=== PATIENT | male | born 1985 | race Caucasian/White ===

== ENCOUNTER 2017-12-12 14:22 | Emergency (ER) | payer OTHER ==
[2017-12-12 16:22] LABS: ABS Basophils 0.1 10^3/ul (0-0.2); ABS Eosinophils 0.1 10^3/ul (0-0.6); ABS Lymphocytes 1.8 10^3/ul (1.0-4.8); ABS Monocytes 1.1 10^3/ul (0-0.8); ABS Neutrophils 10.2 10^3/ul (1.5-7.7); ABS Nucleated RBC 0 10^3/ul; Eosinophil % 0.8 % (0-6); Hematocrit 43 % (42-52); Lymphocyte % 13.9 % (25-47); Mean Corpuscular HGB Conc 34 g/dl (31-36); Mean Corpuscular Hemoglobin 30 pg (27-31); Mean Corpuscular Volume 88 fL (80-94); Mean Platelet Volume 9.2 um3 (7.4-10.4); Nucleated Red Blood Cells % 0; Platelet Count 207 10^3/ul (150-450); Red Blood Count 4.95 10^6/ul (4.0-5.4); Red Cell Distribution Width 13 % (10.5-15); White Blood Count 13.3 10^3/ul (3.5-10.8)
[2017-12-12 16:47] LABS: EGFR Non-African American 71.8 (>60)
--- NOTE | 2017-12-12 17:19 | ED ---
Skin Complaint - HPI Summary HPI Summary: 32 yo WM c/o scalp infection since 10 days ago after hitting his back of head while asleep and woke up with a small cut in back of head which has since drained some pus but still red and painful to touch. Has a thesis defense next week and wants his head pain controlled better. Denies dizzines DUNAWAY, n/v/AMS - History of Current Complaint Chief Complaint: EDHeadInjury Time Seen by Provider: 12/12/17 16:57 Stated Complaint: POSS. INFECTION Hx Obtained From: Patient Onset/Duration: Started Days Ago Skin Exposure Onset/Duration: Days Ago Timing: Lasting Days Onset Severity: Moderate Current Severity: Moderate Pain Intensity: 6 - Allergy/Home Medications Allergies/Adverse Reactions: Allergies Allergy/AdvReac Type Severity Reaction Status Date / Time No Known Allergies Allergy Verified 12/12/17 15:02 Home Medications: Home Medications Albuterol HFA INHALER* [Ventolin HFA Inhaler*] 2 puff INH Q4H PRN 12/12/17 [ History Confirmed 12/12/17] Atomoxetine(NF) [Strattera(NF)] 25 mg PO DAILY 12/12/17 [History Confirmed 12/12] Clindamycin Phos/Benzoyl Perox [Acanya Gel Pump] 1 gel TOPICAL DAILY 12/12/17 [ History Confirmed 12/12/17] Diazepam TAB(*) [Valium TAB(*)] 5 mg PO DAILY PRN 12/12/17 [History Confirmed ] Fluticasone HFA 220 mcg(NF) [Flovent Hfa 220 Mcg(NF)] 1 puff INH BID 12/12/17 [ History Confirmed 12/12/17] Gabapentin CAP(*) [Neurontin 300 CAP(*)] 300 mg PO BID 12/12/17 [History Confirmed 12/12/17] Melatonin (NF) 3 - 5 tab PO BEDTIME 12/12/17 [History Confirmed 12/12/17] Tazarotene [Tazorac] 0.1 % TOPICAL DAILY 12/12/17 [History Confirmed 12/12/17] diPHENhydraMINE PO* [Benadryl PO 25 MG TAB*] 25 mg PO BEDTIME 12/12/17 [History Confirmed 12/12/17] PMH/Surg Hx/FS Hx/Imm Hx Previously Healthy: Yes Psychiatric History: Reports: Hx Depression Infectious Disease History: No Infectious Disease History: Denies: Traveled Outside the [place] in Last 30 Days - Social History Alcohol Use: Occasionally Substance Use Type: Reports: None Smoking Status (MU): Never Smoked Tobacco Review of Systems Constitutional: Negative Eyes: Negative ENT: Negative Cardiovascular: Negative Respiratory: Negative Gastrointestinal: Negative Genitourinary: Negative Musculoskeletal: Negative Positive: Other - scalp infection Neurological: Negative Psychological: Normal All Other Systems Reviewed And Are Negative: Yes Physical Exam Triage Information Reviewed: Yes Vital Signs On Initial Exam: Initial Vitals Temp Pulse Resp BP Pulse Ox 37.7 C 113 16 138/89 100 12/12/17 15:03 12/12/17 15:03 12/12/17 15:03 12/12/17 15:03 12/12/17 15:03 Vital Signs Reviewed: Yes Appearance: Positive: Pain Distress Skin: Positive: Warm, Tender - back of head scalp cellulitis TTP, size 4x5cm, wound no obvious discharge or open wounds Head/Face: Positive: Normal Head/Face Inspection Eyes: Positive: Normal ENT: Positive: Normal ENT inspection Neck: Positive: Supple Respiratory/Lung Sounds: Positive: Clear to Auscultation Cardiovascular: Positive: RRR, S1, S2 Abdomen Description: Positive: Nontender Musculoskeletal: Positive: Normal Neurological: Positive: Normal Psychiatric: Positive: Normal - [place] Coma Scale Best Eye Response: 4 - Spontaneous Best Motor Response: 6 - Obeys Commands Best Verbal Response: 5 - Oriented Coma Scale Total: 15 Diagnostics - Vital Signs Vital Signs Temp Pulse Resp BP Pulse Ox 12/12/17 15:03 37.7 C 113 16 138/89 100 - Laboratory Lab Results: Lab Results 12/12/17 12/12/17 12/12/17 Range/Units 16:07 16:07 16:07 WBC 13.3 H (3.5-10.8) 10^3/ul RBC 4.95 (4.0-5.4) 10^6/ul Hgb 15.0 (14.0-18.0) g/dl Hct 43 (42-52) % MCV 88 (80-94) fL MCH 30 (27-31) pg MCHC 34 (31-36) g/dl RDW 13 (10.5-15) % Plt Count 207 (150-450) 10^3/ul MPV 9.2 (7.4-10.4) um3 Neut % (Auto) 76.6 (38-83) % Lymph % (Auto) 13.9 L (25-47) % [place] % (Auto) 8.1 H (0-7) % Eos % (Auto) 0.8 (0-6) % Baso % (Auto) 0.6 (0-2) % Absolute Neuts (auto) 10.2 H (1.5-7.7) 10^3/ul Absolute Lymphs (auto) 1.8 (1.0-4.8) 10^3/ul Absolute Monos (auto) 1.1 H (0-0.8) 10^3/ul Absolute Eos (auto) 0.1 (0-0.6) 10^3/ul Absolute Basos (auto) 0.1 (0-0.2) 10^3/ul Absolute Nucleated RBC 0 10^3/ul Nucleated RBC % 0 Sodium 143 (139-145) mmol/L Potassium 3.9 (3.5-5.0) mmol/L Chloride 106 (101-111) mmol/L Carbon Dioxide 28 (22-32) mmol/L Anion Gap 9 (2-11) mmol/L BUN 12 (6-24) mg/dL Creatinine 1.17 (0.67-1.17) mg/dL Est GFR ( Amer) 92.3 (>60) Est GFR (Non-Af Amer) 71.8 (>60) BUN/Creatinine Ratio 10.3 (8-20) Glucose 93 (70-100) mg/dL Lactic Acid 1.5 (0.5-2.0) mmol/L Calcium 9.7 (8.6-10.3) mg/dL Total Bilirubin 0.50 (0.2-1.0) mg/dL AST 66 H (13-39) U/L ALT 100 H (7-52) U/L Alkaline Phosphatase 83 (34-104) U/L C-React Prot High Sens 95.88 mg/L Total Protein 7.7 (6.4-8.9) g/dL Albumin 4.7 (3.2-5.2) g/dL Globulin 3.0 (2-4) g/dL Albumin/Globulin Ratio 1.6 (1-3) Result Diagrams: 12/12/17 16:07 12/12/17 16:07 Lab Statement: Any lab studies that have been ordered have been reviewed, and results considered in the medical decision making process. Course/Dx - Course Course Of Treatment: Il NS and 2g IV Cefempime administered. Pt remained stable and was d/c'd with outpt PO Keflex and percocet - Differential Diagnoses - Skin Complaint Differential Diagnoses: Abscess, Cellulitis - Diagnoses Provider Diagnoses: Scalp abrasion, infected, Cellulitis of head or scalp Discharge - Sign-Out/Discharge Documenting (check all that apply): Discharge - Discharge Plan Condition: Stable Disposition: HOME Prescriptions: Cephalexin CAP* [Keflex CAP*] 500 mg PO QID 7 Days #28 cap oxyCODONE/Acetamin 5/325 MG* [Percocet 5/325 TAB*] 1 tab PO Q6H PRN 3 Days #12 tab MDD 4 PRN Reason: Pain Patient Education Materials: Wound Infection (ED) Referrals: [facility] - Beni SOUZA [Primary Care Provider] - Additional Instructions: return to ED if symptoms worsen - Billing Disposition and Condition Condition: STABLE Disposition: HOME
[2017-12-12] MEDS ORDERED: Cefepime(*) 2 GM in NS 0.9% 50 ML* 50 ML IVPB ONE (17:20)
[2017-12-12] MEDS ORDERED: NS 0.9% 1000 ML* 1,000 ML IV ONE (17:21)
[2017-12-12] MEDS ORDERED: Cefepime 2 GM IV - ED ONCE IV ONE (18:15)
[2017-12-12 19:34] VITALS: BP 124/80
== END 2017-12-12 19:33 | disposition home or self-care (01) ==
LOC: EDSEX → MERGE 14:22 → ED 14:22
DX: L03.811 Cellulitis of head [any part, except face] (principal); S00.01XA Abrasion of scalp, initial encounter; W22.8XXA Striking against or struck by other objects, initial encounter; Y93.84 Activity, sleeping; Y92.9 Unspecified place or not applicable
CPT/HCPCS: 36415; 80053; 83605; 85025; 86141; 87040; 96360; 96374; 99282; J0692

== ENCOUNTER → 2018-03-28 21:44 | Emergency (ER) | payer OTHER ==
[~2018-03-28 21:44] MED LIST: Ciprofloxacin 0.3% OPTH.SOL* 2.5 ML BTL RIGHT EYE ONE; Fluorescein Sod TOPICAL 0.6* 0.6 MG TEST OPHTHALMIC ONE; Tetracaine 0.5% OPTH.SOL 4 ML* 1 DROP BTL BOTH EYES ONE
[2018-03-28 22:02] VITALS: BP 119/76
--- NOTE | 2018-03-28 22:10 | UC ---
Eye Complaint HPI - HPI Summary HPI Summary: 32 yo male presents with right eye injury. He tells me that earlier this evening he was doing yard work and started his weed radha when a piece of debris flew into his right eye. Thinks he may have scratched his eye. He does wear contacts and sometimes glasses, but was not at the time of this incident. Denies vision changes. - History of Current Complaint Chief Complaint: UCEye Stated Complaint: EYE INJURY Time Seen by Provider: 03/28/18 22:09 Hx Obtained From: Patient Onset/Duration: Sudden Onset Severity Initially: Mild Severity Currently: Mild Pain Intensity: 4 Pain Scale Used: 0-10 Numeric - Allergies/Home Medications Allergies/Adverse Reactions: Allergies Allergy/AdvReac Type Severity Reaction Status Date / Time No Known Allergies Allergy Verified 03/28/18 22:02 PMH/Surg Hx/FS Hx/Imm Hx Respiratory History: Asthma - Surgical History Surgical History: None - Family History Known Family History: Positive: None - Social History Occupation: Employed Full-time Lives: With Family Alcohol Use: Daily Alcohol Amount: 1 beer a day Substance Use Type: None Smoking Status (MU): Never Smoked Tobacco Review of Systems Constitutional: Negative Skin: Negative Eyes: Eye Redness ENT: Negative Respiratory: Negative Cardiovascular: Negative Neurological: Negative Psychological: Negative All Other Systems Reviewed And Are Negative: Yes Physical Exam - Summary Physical Exam Summary: GENERAL: NAD. WDWN. No pain distress. SKIN: No rashes, sores, lesions, or open wounds. HEENT: Head: AT/NC Eyes: EOM intact. Conjunctiva clear without inflammation or discharge. RIGHT EYE: Mild scleral irritation. No FB. fluorescein exam revealed 2mm linear abrasion to cornea. NECK: Supple. Nontender. No lymphadenopathy. CHEST: CTAB. No r/r/w. No accessory muscle use. Breathing comfortably and in no distress. CV: RRR. Without m/r/g. Pulses intact. Brisk cap refill. NEURO: Alert. CN II-XII grossly intact. PSYCH: Age appropriate behavior. Triage Information Reviewed: Yes Vital Signs: Initial Vital Signs Temp 98.9 F 03/28/18 21:57 Pulse 98 03/28/18 21:57 Resp 18 03/28/18 21:57 BP 119/76 03/28/18 21:57 Pulse Ox 99 03/28/18 21:57 Vital Signs Reviewed: Yes Eye Complaint Course/Dx - Course Course Of Treatment: conreal abrasion - given cipro opth drops in clinic. Advised to use 1 drop QID for 5-7 days - Differential Dx/Diagnosis Provider Diagnoses: Right eye corneal abrasion Discharge - Sign-Out/Discharge Documenting (check all that apply): Patient Departure - Discharge Plan Condition: Stable Disposition: HOME Patient Education Materials: Corneal Abrasion (ED) Referrals: [facility] - Beni SOUZA [Primary Care Provider] - Additional Instructions: If you develop a fever, shortness of breath, chest pain, new or worsening symptoms - please call your PCP or go to the ED. - Billing Disposition and Condition Condition: STABLE Disposition: Home
== END | disposition home or self-care (01) ==
LOC: UCEAST 21:44
DX: S05.01XA Injury of conjunctiva and corneal abrasion without foreign body, right eye, initial encounter (principal); W20.8XXA Other cause of strike by thrown, projected or falling object, initial encounter; Y93.H2 Activity, gardening and landscaping; Y92.007 Garden or yard of unspecified non-institutional (private) residence as the place of occurrence of the external cause
CPT/HCPCS: A9270-GY